=== PATIENT | male | born 1960 | race Caucasian/White ===

== ENCOUNTER 2016-08-20 09:46 | Outpatient (CLI) | payer OTHER ==
--- NOTE | 2016-08-20 19:18 | DIAGNOSTIC IMAGING REPORT ---
PROCEDURE: US CHEST INDICATION: PAIN UPPER RIGHT CHEST TECHNIQUE: Aguirre scale and color Doppler ultrasound of the chest wall. COMPARISON: None. FINDINGS: There is no evidence of a mass or fluid collection corresponding to the symptomatic area. Incidental finding made of an echogenic 2.3 x 0.7 x 0.2 cm subcutaneous mass consistent with a lipoma, which does not correspond to the symptomatic area. IMPRESSION: 1. No abnormalities corresponding to the symptomatic area 2. Incidental chest wall lipoma
== END 2016-08-20 23:00 ==
LOC: US SRH 09:46
DX: M79.9 Soft tissue disorder, unspecified (principal); R07.9 Chest pain, unspecified